=== PATIENT | male | born 1970 | race Caucasian/White ===

== ENCOUNTER 2023-12-30 13:31 | Emergency (ER) | payer MEDICAID ==
[~2023-12-30] VITALS: Ht 157.5 cm; Wt 79.4 kg
[2023-12-30 13:42] VITALS: BP_SYST 128; PULSE 95; RESP 18; TEMP 97.8; O2SAT 97
[2023-12-30 14:48] VITALS: BP_SYST 116; PULSE 86; RESP 17; TEMP 97.8; O2SAT 100
== END 2023-12-30 14:48 | disposition home or self-care (01) ==
LOC: SED 13:31
DX: S93.401A Sprain of unspecified ligament of right ankle, initial encounter (principal); W10.8XXA Fall (on) (from) other stairs and steps, initial encounter; Y93.89 Activity, other specified; Y92.89 Other specified places as the place of occurrence of the external cause; Y99.8 Other external cause status
CPT/HCPCS: 99283